=== PATIENT | female | born 1970 | race Caucasian/White ===

== ENCOUNTER → 2021-06-13 | Day surgery (SDC) | payer OTHER ==
[~2021-06-13] MED LIST: DIPRIVAN 200 MG/20 ML IV ONE
== END ==
LOC: SDC-PAIN 07:28
PROVIDERS: ATTEND Psychiatry & Neurology Pain Medicine
DX: Z53.09 Procedure and treatment not carried out because of other contraindication (principal); G57.02 Lesion of sciatic nerve, left lower limb; M46.1 Sacroiliitis, not elsewhere classified; E11.9 Type 2 diabetes mellitus without complications
CPT/HCPCS: 82947; J2704

== ENCOUNTER 2021-06-27 07:36 | Day surgery (SDC) | payer OTHER ==
[2021-06-27] MEDS ORDERED: Depo-Medrol 40 MG/ML IM ONE (07:37)
[2021-06-27] MEDS ORDERED: Xylocaine 1% Vial 30 ML PF IJ ONE (07:37)
[2021-06-27] MEDS ORDERED: Decadron 4 MG INJ IV ONE (07:37)
[2021-06-27] MEDS ORDERED: BUPIVACAINE 0.5% VIAL IJ ONE (07:37)
[2021-06-27] MEDS ORDERED: DIPRIVAN 200 MG/20 ML IV ONE (09:21)
[2021-06-27] MEDS ORDERED: Lactated Ringers 1,000 ML IV ONE (09:32)
--- NOTE | 2021-06-27 09:58 | XRAY ---
Indication: Left SI joint and piriformis muscle injections. Intraoperative fluoroscopy provided for 45 seconds. 3 digital spot image submitted for interpretation demonstrates posterior needle tip projecting over the inferior left SI joint. Second needle tip projects over the expected left piriformis muscle with small amount of contrast injected for needle tip placement. Correlate with intraoperative findings/report.
--- NOTE | 2021-06-27 10:36 | XRAY ---
45 seconds fluoroscopy time in surgery for injections of the left SI joint and left piriformis muscle.
== END 2021-06-27 09:50 | disposition home or self-care (01) ==
LOC: SDC-PAIN 07:36
PROVIDERS: ATTEND Psychiatry & Neurology Pain Medicine
DX: M46.1 Sacroiliitis, not elsewhere classified (principal); M79.18 Myalgia, other site; E11.9 Type 2 diabetes mellitus without complications; Z79.899 Other long term (current) drug therapy
CPT/HCPCS: 20552; 27096; 72202; 77002; 82947; J1030; J1100; J2001; J2704; Q9966; G0260